=== PATIENT | female | born 1995 | race Caucasian/White ===

== ENCOUNTER 2019-04-22 22:50 | Emergency (ER) | payer MEDICAID, OTHER ==
[~2019-04-22] VITALS: Ht 175.3 cm; Wt 83.9 kg
[~2019-04-22 22:50] MED LIST: IBUP-1542 PO; ONDA4TAB14 PO; TAMS-14 PO
[2019-04-22 22:52] VITALS: Ht 175.3 cm; Wt 83.9 kg
[2019-04-22] MEDS ORDERED: KETOROLAC 30 MG INJ IV STA (23:23)
[2019-04-22] MEDS ORDERED: ONDANSETRON 4 MG INJ IV STA (23:23)
[2019-04-22] MEDS ORDERED: SOD CHLORIDE 0.9% 1,000 ML IV STA (23:23)
[2019-04-23 02:20] VITALS: BP 121/72; PULSE 67; RESP 17
== END 2019-04-23 02:20 | disposition home or self-care (01) ==
LOC: FTE 22:50
DX: N20.0 Calculus of kidney (principal); N39.0 Urinary tract infection, site not specified
CPT/HCPCS: 36415; 80053; 81001; 81025; 83690; 85025; 87086; 96374; 96375; J1885; J2405; J7030; Z7502